=== PATIENT | male | born 1935 | race Caucasian/White ===

== ENCOUNTER → 2017-09-25 | Outpatient (CLI) | payer MEDICARE, OTHER ==
[~2017-09-25] MED LIST: AMLO10 PO; AMOX500; EZET10 PO; EZET10-20 PO; FURO100EL; LISI20 PO; MELO7.5 PO; OXYM.05NI; Prinivil10 MG; QNASL8.7 GM NS; SYNTHROID175 MCG PO; Simvastatin20 MG; Vitamin D400 UNI1 PO
== END | disposition home or self-care (01) ==
LOC: LAB 14:05
DX: C67.9 Malignant neoplasm of bladder, unspecified (principal)
CPT/HCPCS: 88108

== ENCOUNTER → 2017-12-11 | Outpatient (CLI) | payer MEDICARE, OTHER | END | disposition home or self-care (01) | LOC: PLD 13:18 → LAB SHORT 13:18 | DX: D48.5 Neoplasm of uncertain behavior of skin (principal) | CPT/HCPCS: 88304 ==

== ENCOUNTER 2019-08-16 02:35 | Emergency (ER) | payer MEDICARE, OTHER ==
[~2019-08-16] VITALS: Ht 180.3 cm; Wt 113.4 kg
[2019-08-16 04:57] LABS: Source, Urine Clean Catch
[2019-08-16 04:59] LABS: Appearance, Urine Bloody (Clear); Bilirubin, Urine Neg (Neg); Blood, Urine 5+ (Neg); Color, Urine Red (P-Yellow); Glucose Qualitative, Urine Neg (Neg); Ketones, Urine 1+ (Neg); Leukocyte Esterase, Urine Neg (Neg); Nitrite, Urine Neg (Neg); Protein, Urine 4+ (Neg); Urobilinogen, Urine NORM (Normal); pH, Urine 6.5 (5.0-8.0)
[2019-08-16] MEDS ORDERED: PRINIVIL10 MG (05:00)
[2019-08-16] MEDS ORDERED: HYDROCODONE-AC1 EAC1 (05:00)
[2019-08-16] MEDS ORDERED: LATA.005SO (05:00)
[2019-08-16] MEDS ORDERED: EUTHYROX175 MC1 (05:00)
[2019-08-16] MEDS ORDERED: ZOCOR20 MG (05:00)
[2019-08-16] MEDS ORDERED: AMLODIPINE BESY10 MG (05:00)
[2019-08-16] MEDS ORDERED: MELO7.5 PO (05:01)
[2019-08-16 05:03] LABS: Red Blood Cells, Urine TNTC /hpf (0-2); White Blood Cells, Urine 0-2 /hpf (0-5)
[2019-08-16 05:04] LABS: Bacteria Many /hpf; Squamous Epithelial Cells Not Seen /hpf (Few); Yeast/Fungi Urine Few /hpf
[2019-08-16 08:00] LABS: BASOPHILS ABSOLUTE AUTO 0.06 K/mm3 (0.00-0.23); BASOPHILS PERCENT AUTO 1 % (0-2); EOSINOPHILS PERCENT AUTO 2 % (0-6); Hematocrit 42.4 % (37.0-53.0); IMMATURE GRAN ABSOLUTE AUTO 0.04 K/mm3 (0.00-0.10); IMMATURE GRAN PERCENT AUTO 0 % (0-1); LYMPHOCYTES ABSOLUTE AUTO 1.99 K/mm3 (0.84-5.20); LYMPHOCYTES PERCENT AUTO 16 % (21-46); MONOCYTES ABSOLUTE AUTO 1.07 K/mm3 (0.16-1.47); MONOCYTES PERCENT AUTO 9 % (4-13); Mean Corpuscular HGB 33.3 pg (26.0-34.0); Mean Corpuscular Volume 101 fL (80-100); Mean Platelet Volume 9.2 fL (9.1-12.4); NEUTROPHILS ABSOLUTE AUTO 9.05 K/mm3 (1.96-9.15); NEUTROPHILS PERCENT AUTO 73 % (41-73); Platelet Count 295 K/mm3 (150-400); RDW Coefficient Variation 13.8 % (11.7-14.2); RDW Standard Deviation 50.3 fL (35.1-46.3); White Blood Cell Count 12.41 K/mm3 (4.00-11.30)
[2019-08-16 08:11] LABS: Bun/Creatinine Ratio 17.7 (12.0-20.0); Calcium, Blood 9.3 mg/dL (8.5-10.1); Creatinine, Blood 1.3 mg/dL (0.60-1.20); Potassium, Blood 4.4 mmol/L (3.5-5.5)
[2019-08-17] MEDS ORDERED: Cipro500 MG PO (15:22)
== END 2019-08-16 09:59 | disposition home or self-care (01) ==
LOC: ER 02:35
PROVIDERS: Emergency Medicine
DX: R33.9 Retention of urine, unspecified (principal); R31.9 Hematuria, unspecified; Z79.899 Other long term (current) drug therapy
CPT/HCPCS: 51702; 51798; 80048; 81001; 85025; 87086; 99283-25

== ENCOUNTER 2019-08-17 12:30 | Emergency (ER) | payer MEDICARE, OTHER ==
[~2019-08-17] VITALS: Ht 180.3 cm; Wt 113.4 kg
[~2019-08-17 12:30] MED LIST changes: +AMLODIPINE BESY10 MG; +EUTHYROX175 MC1; +HYDROCODONE-AC1 EAC1; +LATA.005SO; +PRINIVIL10 MG; +ZOCOR20 MG
[2019-08-17 14:37] LABS: Source, Urine Catheter
[2019-08-17 14:39] LABS: Bilirubin, Urine Neg (Neg); Blood, Urine 5+ (Neg); Glucose Qualitative, Urine Neg (Neg); Ketones, Urine 1+ (Neg); Leukocyte Esterase, Urine 2+ (Neg); Nitrite, Urine Neg (Neg); Protein, Urine 4+ (Neg); Specific Gravity, Urine 1.015 (1.003-1.022); Urobilinogen, Urine NORM (Normal)
[2019-08-17 14:51] LABS: Appearance, Urine Bloody (Clear); Color, Urine Red (P-Yellow)
[2019-08-17 14:52] LABS: Red Blood Cells, Urine TNTC /hpf (0-2)
[2019-08-17 14:53] LABS: Bacteria Mod /hpf; Squamous Epithelial Cells Not Seen /hpf (Few)
[2019-08-17] MEDS ORDERED: Cipro500 MG PO (15:22)
== END 2019-08-17 16:09 | disposition home or self-care (01) ==
LOC: ER 12:30
PROVIDERS: Emergency Medicine
DX: N39.0 Urinary tract infection, site not specified (principal); Z79.899 Other long term (current) drug therapy; Z87.891 Personal history of nicotine dependence
CPT/HCPCS: 51702; 51798; 81001; 99283-25

== ENCOUNTER → 2021-01-24 | Outpatient (CLI) | payer MEDICARE, OTHER ==
[~2021-01-24] MED LIST changes: +Cipro500 MG PO
== END | disposition home or self-care (01) ==
LOC: LAB SHORT 14:07 → LAB 14:07
DX: D48.5 Neoplasm of uncertain behavior of skin (principal)
CPT/HCPCS: 88304

== ENCOUNTER → 2021-08-25 | Outpatient (CLI) | payer MEDICARE, OTHER | LOC: LAB SHORT 12:55 → LAB FUT 08-25 11:25 | DX: R31.0 Gross hematuria (principal) | CPT/HCPCS: 87086 ==